=== PATIENT | female | born 1990 | race Caucasian/White ===

== ENCOUNTER → 2021-11-22 | Day surgery (SDC) | payer BC ==
[~2021-11-22] MED LIST: CLARITIN10 MG PO; COLACE 100MG C100 MG PO; GLUCOPHAGE1000 MG PO; IBUPROFEN600 MG PO; LORTAB 5-325 M1 EACH PO; PRENATAL VITAM1 EAC8 PO
[2021-11-22 07:00] LABS: HEMOGLOBIN 13.2 gm/dl (12.3-15.3); RED BLOOD COUNT 4.41 M/UL (4.00-5.10); WHITE BLOOD COUNT 8.6 K/UL (4.5-11.0)
== END | disposition home or self-care (01) ==
LOC: OR 05:48
PROVIDERS: Obstetrics & Gynecology
DX: O02.1 Missed abortion (principal); O09.291 Supervision of pregnancy with other poor reproductive or obstetric history, first trimester; O99.211 Obesity complicating pregnancy, first trimester; Z3A.01 Less than 8 weeks gestation of pregnancy
CPT/HCPCS: 36415; 81001; 85025; J2250; J7030